=== PATIENT | male | born 1955 | race Caucasian/White ===

== ENCOUNTER 2021-08-20 10:38 | Inpatient (IN) | payer MEDICARE ==
[2021-08-20] MEDS ORDERED: ceFAZolin 2 GM/DEX 5% 100 ML BAG ONE (10:54)
[2021-08-20] MEDS ORDERED: Boostrix 0.5 ML (Tdap) VIAL ONE (10:55)
[2021-08-20 11:02] LABS: #Eosinphils 0.1 thou/uL (0.0-0.7); #Lymphocytes 1.2 thou/uL (1.20-3.40); #Monocytes 0.7 thou/uL (0.11-0.59); #Neutrophils 8.9 thou/uL (1.40-6.50); %Basophils 0.3 % (0.0-1.0); %Eosinophils 1.3 % (0.0-10.0); %Lymphocytes 11.2 % (21.0-51.0); %Monocytes 6.1 % (0.0-10.0); %Neutrophils 81.1 % (42.0-75.0); Hemoglobin 13.7 g/dL (14.0-18.0); Mean Corpuscular HGB CONC 34.4 g/dL (32.0-36.0); Mean Corpuscular Hemoglobin 31.2 pg (27.0-31.0); Mean Corpuscular Volume 90.6 fL (78.0-98.0); Mean Platelet Volume 8.2 fL (7.4-10.4); Platelet Count 166 thou/uL (130-400); RBC Distribution Width 12.1 % (11.5-14.5); Red Blood Cell (RBC) Count 4.39 mill/uL (4.70-6.10); White Blood Cell (WBC) Count 10.9 thou/uL (4.8-10.8)
[2021-08-20] MEDS ORDERED: EPINEPHrine 1 MG/10 ML Abboject SYRINGE ONE (11:07)
[2021-08-20 11:14] LABS: PTT 30.2 sec (22.9-36.1); Prothrombin Time 13.7 sec (12.0-14.7)
[2021-08-20 11:17] LABS: ALT (SGPT) 27 U/L (8-55); AST (SGOT) 27 U/L (5-34); Alkaline Phosphatase 65 U/L (40-110); Anion Gap 12 mmol/L (10-20); BUN (Urea Nitrogen) 19 mg/dL (8.4-25.7); Bilirubin, Total 0.5 mg/dL (0.2-1.2); Calc. Creatinine Clearance 0 mL/min (70-130); Calcium 8.9 mg/dL (7.8-10.44); Carbon Dioxide 25 mmol/L (23-31); Chloride 106 mmol/L (98-107); Globulin 2.4 g/dL (2.4-3.5); Glucose 195 mg/dL (80-115); Lipase 61 U/L (8-78); Protein, Total 6.4 g/dL (5.8-8.1); Sodium 139 mmol/L (136-145)
[2021-08-20] MEDS ORDERED: Fentanyl 100 MCG/2 ML VIAL ONE (11:39)
[2021-08-20] MEDS ORDERED: Ketamine 50 MG/ML (10ML VIAL) ONE (12:17)
[2021-08-20] MEDS ORDERED: Iopamidol 370 76% 100 ML VIAL ONE (12:23)
[2021-08-20] MEDS ORDERED: Lidocaine 1% w/Epinephrine 1:100K 20 ML VIAL ONE (12:28)
[2021-08-20] MEDS ORDERED: Dextrose 5% in Water 1,000 ML IV PRN (12:51)
[2021-08-20] MEDS ORDERED: Ondansetron PF 4 MG/2 ML Vial IVP PRN (12:51)
[2021-08-20] MEDS ORDERED: hydrALAZINE 20 MG/ML VIAL SLOW IVP PRN (12:51)
[2021-08-20] MEDS ORDERED: Dextrose 50% Abboject 50 ML SYRINGE SLOW IVP PRN (12:51)
[2021-08-20] MEDS ORDERED: traMADol HCl 50 MG TAB PO PRN (13:02)
[2021-08-20] MEDS ORDERED: Morphine 4 MG/ML VIAL ONE (13:32)
[2021-08-20] MEDS ORDERED: Ketorolac Tromethamine 30 MG/ML VIAL ONE (13:41)
[2021-08-20 16:37] LABS: SARS-CoV-2 NAA Rapid Test Not Detected (NotDetected)
[2021-08-20] MEDS: Gabapentin 300 MG CAP PO SCH ×2 (16:41→20:09)
[2021-08-20] MEDS: Acetaminophen 500 MG TAB PO SCH ×2 (16:41→19:52)
[2021-08-20] MEDS: traMADol HCl 50 MG TAB PO SCH ×2 (16:41→19:52)
[2021-08-20] MEDS: Sodium Chloride 0.9% 1,000 ML IV SCH ×2 (17:01→20:25)
[2021-08-20] MEDS: Ketorolac Tromethamine 30 MG/ML VIAL IVP SCH (18:18)
[2021-08-20] MEDS: Morphine 4 MG/ML VIAL SLOW IVP PRN ×2 (18:22→20:10)
[2021-08-20] MEDS: Senokot S 8.6-50 MG TAB PO SCH (20:09)
[2021-08-20] MEDS: Famotidine 20 MG TAB PO SCH (20:09)
[2021-08-20] MEDS: Tamsulosin HCl 0.4 MG CAP PO SCH (20:50)
[2021-08-20] MEDS: Lidocaine 5% Patch TD SCH (20:50)
[2021-08-20] MEDS ORDERED: Senokot S 8.6-50 MG TAB PO SCH (21:00)
[2021-08-21] MEDS: Ketorolac Tromethamine 30 MG/ML VIAL IVP SCH ×4 (00:36→18:07)
[2021-08-21] MEDS: Acetaminophen 500 MG TAB PO SCH ×4 (01:02→18:06)
[2021-08-21] MEDS: traMADol HCl 50 MG TAB PO SCH ×2 (01:02→09:42)
[2021-08-21 04:10] LABS: #Lymphocytes 0.5 thou/uL (1.20-3.40); #Monocytes 0.5 thou/uL (0.11-0.59); #Neutrophils 3.2 thou/uL (1.40-6.50); %Basophils 0.1 % (0.0-1.0); %Eosinophils 0.7 % (0.0-10.0); %Monocytes 12.4 % (0.0-10.0); %Neutrophils 74.8 % (42.0-75.0); Hemoglobin 11.5 g/dL (14.0-18.0); Mean Corpuscular HGB CONC 36.2 g/dL (32.0-36.0); Mean Corpuscular Hemoglobin 32.8 pg (27.0-31.0); Mean Corpuscular Volume 90.5 fL (78.0-98.0); Mean Platelet Volume 8.5 fL (7.4-10.4); Platelet Count 130 thou/uL (130-400); RBC Distribution Width 12.3 % (11.5-14.5); Red Blood Cell (RBC) Count 3.51 mill/uL (4.70-6.10); White Blood Cell (WBC) Count 4.3 thou/uL (4.8-10.8)
[2021-08-21 04:37] LABS: Anion Gap 11 mmol/L (10-20); BUN (Urea Nitrogen) 15 mg/dL (8.4-25.7); Calc. Creatinine Clearance 109 mL/min (70-130); Calcium 8.3 mg/dL (7.8-10.44); Carbon Dioxide 23 mmol/L (23-31); Chloride 108 mmol/L (98-107); Glucose 114 mg/dL (80-115); Magnesium 1.7 mg/dL (1.6-2.6); Phosphorus 3.9 mg/dL (2.3-4.7); Potassium 3.9 mmol/L (3.5-5.1); Sodium 138 mmol/L (136-145)
[2021-08-21] MEDS: Sodium Chloride 0.9% 1,000 ML IV SCH (05:58)
[2021-08-21] MEDS: Morphine 4 MG/ML VIAL SLOW IVP PRN ×2 (05:59→11:15)
[2021-08-21] MEDS ORDERED: Magnesium 2 GM/50 ML 2 GM in Premix Bag 1 BAG IVPB SCH (07:45)
[2021-08-21] MEDS ORDERED: traMADol HCl 50 MG TAB PO SCH (08:00)
[2021-08-21] MEDS: Famotidine 20 MG TAB PO SCH ×2 (08:17→22:13)
[2021-08-21] MEDS: Gabapentin 300 MG CAP PO SCH ×3 (08:17→22:12)
[2021-08-21] MEDS: Senokot S 8.6-50 MG TAB PO SCH ×2 (08:17→22:11)
[2021-08-21] MEDS: Polyethylene Glycol 3350 17 GM Packet PO SCH (08:18)
[2021-08-21] MEDS: Transdermal Patch Removal TOP SCH (08:19)
[2021-08-21] MEDS ORDERED: Polyethylene Glycol 3350 17 GM Packet PO SCH (09:00)
[2021-08-21] MEDS ORDERED: Lidocaine 5% Patch TD SCH (09:00)
[2021-08-21] MEDS ORDERED: Tamsulosin HCl 0.4 MG CAP PO SCH ×2 (09:00)
[2021-08-21] MEDS ORDERED: FLU VACC QS2021-22(65YR UP)/PF 240 MCG/0.7 ML SYRINGE IM ONE (09:00)
[2021-08-21] MEDS ORDERED: Acetaminophen/Codeine 30-300mg Tablet PO PRN (09:30)
[2021-08-21] MEDS: Acetaminophen/Codeine 30-300mg Tablet PO SCH ×2 (12:02→18:06)
[2021-08-21] MEDS ORDERED: Transdermal Patch Removal TOP SCH (21:00)
[2021-08-21] MEDS: Tamsulosin HCl 0.4 MG CAP PO SCH (22:13)
[2021-08-21] MEDS: Cyclobenzaprine 10 MG TAB PO PRN (22:13)
[2021-08-22] MEDS: Ketorolac Tromethamine 30 MG/ML VIAL IVP SCH ×2 (00:23→05:35)
[2021-08-22] MEDS: Acetaminophen/Codeine 30-300mg Tablet PO SCH ×2 (00:24→05:37)
[2021-08-22] MEDS: Acetaminophen 500 MG TAB PO SCH ×5 (00:25→22:08)
[2021-08-22] MEDS: Lidocaine 5% Patch TD SCH ×2 (00:26→20:35)
[2021-08-22 05:38] LABS: Anion Gap 10 mmol/L (10-20); BUN (Urea Nitrogen) 16 mg/dL (8.4-25.7); Calc. Creatinine Clearance 109 mL/min (70-130); Calcium 8.5 mg/dL (7.8-10.44); Carbon Dioxide 24 mmol/L (23-31); Chloride 109 mmol/L (98-107); Glucose 108 mg/dL (80-115); Magnesium 2.1 mg/dL (1.6-2.6); Potassium 4.2 mmol/L (3.5-5.1); Sodium 139 mmol/L (136-145)
[2021-08-22 05:44] VITALS: BMI 28.5
[2021-08-22 06:11] LABS: Hemoglobin 10.9 g/dL (14.0-18.0); Mean Corpuscular HGB CONC 33.9 g/dL (32.0-36.0); Mean Corpuscular Volume 91.5 fL (78.0-98.0); RBC Distribution Width 12.4 % (11.5-14.5); Red Blood Cell (RBC) Count 3.52 mill/uL (4.70-6.10)
[2021-08-22 06:14] LABS: #Eosinphils 0.1 thou/uL (0.0-0.7); #Lymphocytes 0.4 thou/uL (1.20-3.40); #Monocytes 0.4 thou/uL (0.11-0.59); #Neutrophils 3.1 thou/uL (1.40-6.50); %Basophils 0.2 % (0.0-1.0); %Eosinophils 1.5 % (0.0-10.0); %Lymphocytes 10.2 % (21.0-51.0); %Monocytes 10.8 % (0.0-10.0); %Neutrophils 77.3 % (42.0-75.0); Mean Platelet Volume 8.6 fL (7.4-10.4); Platelet Count 114 thou/uL (130-400)
[2021-08-22 06:15] LABS: Platelet Morphology Comment Appears Decreased
[2021-08-22] MEDS: Senokot S 8.6-50 MG TAB PO SCH ×2 (08:57→20:35)
[2021-08-22] MEDS: Cyclobenzaprine 10 MG TAB PO PRN ×3 (08:57→20:56)
[2021-08-22] MEDS: Gabapentin 300 MG CAP PO SCH ×3 (08:57→20:34)
[2021-08-22] MEDS: Enoxaparin Sodium 30 MG/0.3 ML SYRINGE SC SCH ×2 (08:58→20:38)
[2021-08-22] MEDS: Polyethylene Glycol 3350 17 GM Packet PO SCH (10:33)
[2021-08-22] MEDS: Transdermal Patch Removal TOP SCH (10:33)
[2021-08-22] MEDS ORDERED: Acetaminophen/Codeine 30-300mg Tablet PO SCH (12:00)
[2021-08-22] MEDS: Ibuprofen 200 MG TAB PO SCH ×2 (14:34→22:08)
[2021-08-22] MEDS: traMADol HCl 50 MG TAB PO SCH ×2 (17:15→20:33)
[2021-08-22] MEDS: Tamsulosin HCl 0.4 MG CAP PO SCH (20:34)
[2021-08-22] MEDS: Acetaminophen/Codeine 30-300mg Tablet PO PRN (22:10)
[2021-08-23] MEDS: traMADol HCl 50 MG TAB PO SCH ×4 (03:06→20:44)
[2021-08-23] MEDS: Ibuprofen 200 MG TAB PO SCH ×3 (05:52→23:01)
[2021-08-23] MEDS: Acetaminophen/Codeine 30-300mg Tablet PO PRN (05:53)
[2021-08-23] MEDS: Acetaminophen 500 MG TAB PO SCH (05:55)
[2021-08-23 06:13] LABS: #Eosinphils 0.1 thou/uL (0.0-0.7); #Lymphocytes 0.4 thou/uL (1.20-3.40); #Monocytes 0.3 thou/uL (0.11-0.59); #Neutrophils 2.5 thou/uL (1.40-6.50); %Basophils 0.2 % (0.0-1.0); %Eosinophils 3.1 % (0.0-10.0); %Lymphocytes 13.1 % (21.0-51.0); %Monocytes 8.9 % (0.0-10.0); %Neutrophils 74.7 % (42.0-75.0); Hemoglobin 10.4 g/dL (14.0-18.0); Mean Corpuscular HGB CONC 34.6 g/dL (32.0-36.0); Mean Corpuscular Hemoglobin 31.7 pg (27.0-31.0); Mean Corpuscular Volume 91.7 fL (78.0-98.0); Mean Platelet Volume 8.1 fL (7.4-10.4); Platelet Count 123 thou/uL (130-400); RBC Distribution Width 12.2 % (11.5-14.5); Red Blood Cell (RBC) Count 3.27 mill/uL (4.70-6.10); White Blood Cell (WBC) Count 3.3 thou/uL (4.8-10.8)
[2021-08-23 06:34] LABS: Anion Gap 11 mmol/L (10-20); BUN (Urea Nitrogen) 15 mg/dL (8.4-25.7); Calc. Creatinine Clearance 109 mL/min (70-130); Calcium 8.5 mg/dL (7.8-10.44); Carbon Dioxide 26 mmol/L (23-31); Chloride 105 mmol/L (98-107); Glucose 106 mg/dL (80-115); Phosphorus 3.4 mg/dL (2.3-4.7); Sodium 138 mmol/L (136-145)
[2021-08-23] MEDS: Senokot S 8.6-50 MG TAB PO SCH ×2 (08:46→20:42)
[2021-08-23] MEDS: Enoxaparin Sodium 30 MG/0.3 ML SYRINGE SC SCH ×2 (08:47→20:39)
[2021-08-23] MEDS: Transdermal Patch Removal TOP SCH (08:47)
[2021-08-23] MEDS: Cyclobenzaprine 10 MG TAB PO PRN ×2 (08:47→20:39)
[2021-08-23] MEDS: Gabapentin 300 MG CAP PO SCH (08:47)
[2021-08-23] MEDS: Polyethylene Glycol 3350 17 GM Packet PO SCH (08:47)
[2021-08-23] MEDS ORDERED: HYDROcodone/Acetaminophen 7.5/325 mg Tablet PO SCH (11:15)
[2021-08-23] MEDS: HYDROcodone/Acetaminophen 7.5/325 mg Tablet PO PRN ×2 (12:04→20:40)
[2021-08-23] MEDS: Acetaminophen 325 MG TAB PO SCH ×3 (12:04→23:01)
[2021-08-23] MEDS: Pregabalin 75 MG CAP PO SCH (20:39)
[2021-08-23] MEDS: Tamsulosin HCl 0.4 MG CAP PO SCH (20:39)
[2021-08-23] MEDS: Lidocaine 5% Patch TD SCH (20:44)
[2021-08-24] MEDS: traMADol HCl 50 MG TAB PO SCH ×3 (03:55→14:48)
[2021-08-24] MEDS: Acetaminophen 325 MG TAB PO SCH ×2 (06:01→12:42)
[2021-08-24] MEDS: Ibuprofen 200 MG TAB PO SCH ×2 (06:02→14:47)
[2021-08-24] MEDS: Enoxaparin Sodium 30 MG/0.3 ML SYRINGE SC SCH (09:23)
[2021-08-24] MEDS: Polyethylene Glycol 3350 17 GM Packet PO SCH ×2 (09:25→09:28)
[2021-08-24] MEDS: Pregabalin 75 MG CAP PO SCH (09:25)
[2021-08-24] MEDS: Senokot S 8.6-50 MG TAB PO SCH (09:26)
[2021-08-24] MEDS: Transdermal Patch Removal TOP SCH (09:27)
[2021-08-24] MEDS ORDERED: Acetaminophen/Codeine 30-300mg Tablet PO PRN (14:28)
[2021-08-24 16:04] VITALS: BP 148/84; TEMP 97.1
== END 2021-08-24 16:55 | disposition home or self-care (01) | DRG 199 ==
LOC: ERS 10:38 → IMCU/EMU 12:51 → SJJU 08-21 14:07
PROVIDERS: ADMIT Specialist; ATTEND Surgery
PROC: 0W9B30Z Drainage of Left Pleural Cavity with Drainage Device, Percutaneous Approach (ICD-10-PCS; principal; 2021-08-20)
DX: S27.2XXA Traumatic hemopneumothorax, initial encounter (principal); S22.5XXA Flail chest, initial encounter for closed fracture; S22.059A Unspecified fracture of T5-T6 vertebra, initial encounter for closed fracture; S22.079A Unspecified fracture of T9-T10 vertebra, initial encounter for closed fracture; D62 Acute posthemorrhagic anemia; Z23 Encounter for immunization; Z20.822 Contact with and (suspected) exposure to COVID-19; N40.0 Benign prostatic hyperplasia without lower urinary tract symptoms; E83.42 Hypomagnesemia; W55.22XA Struck by cow, initial encounter; Z85.46 Personal history of malignant neoplasm of prostate; Z79.899 Other long term (current) drug therapy
CPT/HCPCS: 32551; 36415; 70450; 71045; 71260; 72125; 72170; 74177; 80048; 80053; 83690; 83735; 84100; 85025; 85610; 85730; 86850; 86900; 86901; 90471; 90715; 93005; 96365; 96375; 96376; 99156; 99157; 99292; G0390; J0171; J1650; J1885; J2270; J3010; J3475; J7050; J7620; Q9967; U0002